=== PATIENT | female | born 2000 | race Caucasian/White ===

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

== ENCOUNTER 2019-07-11 10:17 | Emergency (ER) | payer MEDICAID, OTHER ==
[~2019-07-11] VITALS: Ht 157.5 cm; Wt 53.2 kg
[~2019-07-11 10:17] MED LIST: ACET500C5 PO; HYDR-3980 PO; NITR-58 PO; ONDA4TAB14 PO; PREN1TAB71 PO; SULF1TAB31 PO
[2019-07-11 10:19] VITALS: Ht 157.5 cm; Wt 53.2 kg
[2019-07-11] MEDS ORDERED: ONDANSETRON 4 MG INJ IV STA (10:45)
[2019-07-11] MEDS ORDERED: SOD CHLORIDE 0.9% 1,000 ML IV STA (10:45)
[2019-07-11] MEDS ORDERED: SOD CHLORIDE 0.9% 100 ML ONE (12:55)
[2019-07-11] MEDS ORDERED: IOHEXOL 300MG/ML 150 ML BTL ONE (12:55)
[2019-07-11 14:04] VITALS: BP 109/63; PULSE 77; RESP 16
== END 2019-07-11 14:06 | disposition home or self-care (01) ==
LOC: FTE 10:17
DX: R11.2 Nausea with vomiting, unspecified (principal); F17.210 Nicotine dependence, cigarettes, uncomplicated
CPT/HCPCS: 36415; 74177; 80053; 81001; 81025; 83690; 85025; 96374; J2405; J7030; Q9967; Z7502; Z7610